=== PATIENT | female | born 1950 | race Caucasian/White ===

== ENCOUNTER 2016-07-31 15:08 | Emergency (ER) | payer MEDICARE, OTHER ==
[~2016-07-31 15:08] MED LIST: ASCO500T2 PO; ASPI81TA2 PO; ATOR10TA PO; METAMUCIL POWD283 GM PO; MULT-658 PO
[2016-07-31 15:35] VITALS: BP 150/87
--- NOTE | 2016-07-31 15:37 | ED.ADGEN ---
Past History Past Medical History: Kidney Stones, Other Past Surgical History: , Hysterectomy Alcohol Use: None Drug Use: None Adult General Chief Complaint Chief Complaint chemical exposure HPI HPI Patient is a 66 year old female who presents for evaluation of her left arm. She was opening a new bottle of Lysol Bleach toilet bowl pillowcase cleaner and it "exploded" and the liquid went on her left hand and forearm. This occurred 2.5 hours prior to arrival. She immediately washed off her arm and then contacted the number on the bottle. They recommended that the pt wash her arm for 15 minutes and then monitor. If redness or itching developed, pt recommended to come to the ED for further evaluation. She thought she could feel some itching and see redness so the patient came on in. About a week ago, pt reports she bumped her left elbow. Since then, she's had intermittent pain in the elbow, improves when holding in completely flexed position. She has not attempted any pain relieving medication and has not noted any weakness. PCP is Dr. Wood Review of Systems Review of Systems Constitutional: Denies fever or chills [] Eyes: Denies change in visual acuity, redness, or eye pain [] HENT: Denies nasal congestion or sore throat [] Respiratory: Denies cough or shortness of breath [] Cardiovascular: Denies chest pain GI: Denies abdominal pain, nausea, vomiting, bloody stools or diarrhea [] : Denies dysuria or hematuria [] Musculoskeletal: Denies back pain Integument: Denies rash or skin lesions [] Neurologic: Denies headache, focal weakness or sensory changes [] Allergies Allergies Allergies Coded Allergies Type Severity Reaction Last Updated Verified influenza virus vaccine, specific Allergy Unknown 04/05/14 Yes Uncoded Allergies Type Severity Reaction Last Updated Verified BETA OLIVIA Allergy Unknown 04/05/14 EGGS Allergy Unknown 04/05/14 Physical Exam Physical Exam Constitutional: Well developed, well nourished, no acute distress, non-toxic appearance. [] HENT: Normocephalic, atraumatic, bilateral external ears normal, oropharynx moist, no oral exudates, nose normal. [] Eyes: PERRLA, EOMI, conjunctiva normal, no discharge. [] Neck: Normal range of motion, no tenderness, supple, no stridor. [] Cardiovascular:Heart rate regular with regular rhythm, no murmur [] Lungs & Thorax: Bilateral breath sounds clear to auscultation, no wheeze or crackles Skin: Warm, dry, no erythema or rash, no lesions, skin intact Back: No tenderness, no CVA tenderness. [] Extremities: No tenderness, no cyanosis, no clubbing, ROM intact, no edema. left elbow FROM, no ttp, no edema, no erythema or increased warmth Neurologic: Alert and oriented X 3, normal motor function, normal sensory function, no focal deficits noted. [] EKG EKG [] Radiology/Procedures Radiology/Procedures [] Course & Med Decision Making Course & Med Decision Making Pertinent Labs and Imaging studies reviewed. (See chart for details) Discussed possibility of contact dermatitis vs chemical burn and treatment/ findings for both. At this time, pt does not have signs of either. I also explained the redness she appreciated could have been from the cleaning itself. Return precautions given and pt dc'd. Final Impression Final Impression household cleaning chemical exposure to left arm left elbow pain[] Problems: Dragon Disclaimer Dragon Disclaimer This electronic medical record was generated, in whole or in part, using a voice recognition dictation system. JOSEF COMER MD Jul 31, 2016 15:37
== END 2016-07-31 15:35 | disposition home or self-care (01) ==
LOC: ER 15:08
DX: Z77.098 Contact with and (suspected) exposure to other hazardous, chiefly nonmedicinal, chemicals (principal); M25.522 Pain in left elbow; Z87.442 Personal history of urinary calculi; Z88.7 Allergy status to serum and vaccine; Z88.8 Allergy status to other drugs, medicaments and biological substances; Z91.012 Allergy to eggs
CPT/HCPCS: 99281

== ENCOUNTER → 2017-01-17 | Outpatient (CLI) | payer MEDICARE, OTHER ==
[~2017-01-17] MED LIST changes: +ASPI-630 PO; -ASPI81TA2 PO
--- NOTE | 2017-01-17 15:24 | RAD ---
Abdominal radiograph 01/17/2017 at 0941 hours Indication: Kidney stone Comparison: Abdominal radiograph 07/01/2016 Technique: Single supine radiograph of the abdomen is provided. Findings: Supine technique limits evaluation for free intraperitoneal air. Rounded calcific density projecting over the right renal shadow measures 11 mm. No calculi are identified along the course of the ureters or urinary bladder. Phleboliths are noted within the pelvis, stable. Similar appearance of a gas-filled bowel loop in the left upper quadrant. Impression: There is a 11 mm calcific density projecting over the right renal shadow which may represent a renal calculus. However, no definite calculi are identified along the course of the ureters or urinary bladder.
== END | disposition home or self-care (01) ==
LOC: DXRAD 09:34
PROVIDERS: ATTEND Urology
DX: N20.0 Calculus of kidney (principal); I87.8 Other specified disorders of veins
CPT/HCPCS: 74000

== ENCOUNTER → 2018-01-23 | Outpatient (CLI) | payer MEDICARE, OTHER ==
--- NOTE | 2018-01-23 13:04 | RAD ---
EXAM: Abdomen, single view. HISTORY: Nephrolithiasis. COMPARISON: 01/17/2017 FINDINGS: A frontal view of the abdomen is obtained. There is a cluster of stones overlying the lower pole the left kidney measuring 9 mm in conglomerate. This appears slightly decreased in size compared to the prior study, allowing for artifact due to overlying bowel on the prior study. No contralateral stone is seen. There are pelvic phleboliths. There is a nonobstructive bowel gas pattern. IMPRESSION: Left nephrolithiasis, slightly decreased compared to the prior study. Electronically signed by: Harmony Brizuela MD (01/23/2018 1:01 PM) [place] [id number]
== END | disposition home or self-care (01) ==
LOC: DXRAD 10:09
PROVIDERS: ATTEND Urology
DX: N20.0 Calculus of kidney (principal); Z91.012 Allergy to eggs; Z88.7 Allergy status to serum and vaccine; Z88.8 Allergy status to other drugs, medicaments and biological substances; Z90.710 Acquired absence of both cervix and uterus
CPT/HCPCS: 74018

== ENCOUNTER 2020-05-27 06:53 | Emergency (ER) | payer MEDICARE, OTHER ==
[~2020-05-27] VITALS: Ht 147.3 cm; Wt 49.5 kg
[~2020-05-27 06:53] MED LIST changes: -ASCO500T2 PO; +ASCO500T4 PO
[2020-05-27] MEDS ORDERED: ONDANSETRON PF 4 MG/2 ML VIAL. IVP ONE (07:45)
[2020-05-27] MEDS ORDERED: IOHEXOL 300 MG/ML 75 ML VIAL. IV ONE (07:45)
[2020-05-27] MEDS ORDERED: IV NORMAL SALINE 500ML 500 ML IV ONE (07:45)
--- NOTE | 2020-05-27 07:53 | PHYS DOC ---
Past History Past Medical History: Glaucoma, High Cholesterol, Kidney Stones Past Surgical History: , Hysterectomy, Other Alcohol Use: None Drug Use: None General Adult EDM: Chief Complaint: ABDOMINAL PAIN HPI: HPI: Patient is a 70-year-old female coming in for low abdominal pain that woke her up around 2 AM. Patient says she takes the Pepto-Bismol and Tums. Says the pain feels like "gas pain". Is not improved with passing gas. Patient states the pain is better with walking around and worse with laying supine or standing upright. Says her last bowel movement was about 1 day ago and has a history of constipation and straining. Denies any bloody or tarry bowel movements. Has had 1 episode of emesis since the pain started, which was clear. Denies any fevers, cough, headache, lightheadedness, changes or pain with urination. Has a history of a hysterectomy and 2 C-sections. States she is lactose intolerant and ate pizza last night but took that she is off. Review of Systems: Review of Systems: All other systems within normal limits except for as noted in the HPI Current Medications: Current Meds: Current Medications Medications (Trade) Dose Ordered Sig/Petty Start Time Stop Time Status Last Admin Dose Admin Fentanyl Citrate (Fentanyl 2ml Vial) 50 mcg 1X ONCE 05/27/20 07:45 05/27/20 07:46 DC Iohexol (Omnipaque 300 Mg/ml) 75 ml 1X ONCE 05/27/20 07:45 05/27/20 07:46 UNV Ondansetron HCl (Zofran) 4 mg 1X ONCE 05/27/20 07:45 05/27/20 07:46 DC Sodium Chloride 500 ml @ 0 mls/hr 1X ONCE 05/27/20 07:45 05/27/20 07:46 DC Allergies: Allergies: Allergies Coded Allergies Type Severity Reaction Last Updated Verified latex Allergy Mild Rash 05/27/20 Yes oseltamivir Allergy Unknown 05/27/20 Yes pregabalin Allergy Unknown 05/27/20 Yes Uncoded Allergies Type Severity Reaction Last Updated Verified BETA OLIVIA Allergy Unknown 04/05/14 EGGS Allergy Unknown 04/05/14 Physical Exam: PE: Constitutional: Well developed, well nourished, no acute distress, non-toxic appearance. [] HENT: Normocephalic, atraumatic, bilateral external ears normal, nose normal. [] Eyes: PERRLA, conjunctiva normal, no discharge. [] Neck: No rigidity, supple, no stridor. [] Cardiovascular: Regular rate and rhythm, brisk cap refill [] Lungs & Thorax: Non labored symmetric respirations, no tachypnea or respiratory distress [] Abdomen: Soft, nondistended generalized tenderness palpation. Skin: Warm, dry, no erythema, no rash. [] Extremities: No deformities, range of motion grossly intact, no lower extremity edema [] Neurologic: Alert and oriented X 3, no focal deficits noted. [] Psychologic: Affect normal, judgement normal, mood normal. [] Current Patient Data: Vital Signs: Vital Signs Date Time Temp Pulse Resp B/P (MAP) Pulse Ox O2 Delivery O2 Flow Rate FiO2 05/27/20 07:03 98.1 65 18 159/85 (109) 98 EKG: EKG: Sinus rhythm, heart rate 61 bpm, no ST elevation depression, normal axis. No ectopy, normal intervals [] Radiology/Procedures: Radiology/Procedures: Study: CT abdomen/pelvis with intravenous contrast Indication: Right lower quadrant abdominal pain. Comparison: 04/05/2014 Technique: Helical CT imaging performed of the abdomen and pelvis after the intravenous administration of 75 cc Omnipaque 300 contrast. Sagittal and coronal reformats were obtained. One or more of the following individualized dose reduction techniques were utilized for this examination: 1. Automated exposure control 2. Adjustment of the mA and/or kV according to patient size 3. Use of iterative reconstruction technique. Findings: Punctate nodularity partially imaged in the right middle lobe not meeting size criteria for dedicated follow-up. Redemonstration of scattered subcentimeter hypoattenuating foci within the liver. No suspicious hepatic abnormality. Within normal limits gallbladder and biliary tree. Unremarkable pancreas, spleen and adrenal glands. Redemonstration of numerous hepatic cystic foci. There is again some calcification along the periphery of the cyst on the right. No newly seen complex cyst or mass. Intrarenal stones on the left the largest measuring 5.5 mm. No hydronephrosis. Unremarkable bladder. No adnexal mass. There is some haziness of the fat along the colon at several locations but no overt colonic wall thickening to suggest an active colitis. The appendix is unremarkable. At the lower abdomen and pelvis, segments of small bowel are mildly thick walled with mucosal hyperenhancement and surrounding mild edema. Small amount of free fluid within the deep pelvis. No pathologic dilatation of small bowel to suggest a high-grade obstruction. No pneumatosis or findings of perforation. Nonaneurysmal aorta. No lymphadenopathy by size criteria. No acute or aggressive osseous process. Scattered degenerative changes. Impression: 1. Segments of small bowel within the lower abdomen and throughout the pelvis extending to the terminal ileum are mildly thick-walled with mucosal hype renhancement. There is also a small amount of free fluid within the deep pelvis and some mild edema along small bowel loops. No pathologic dilatation to suggest a high-grade obstruction at this time. A nonspecific infectious or inflammatory enteritis is the leading consideration. No pneumatosis or perforation. Unremarkable appendix. 2. Nonobstructing intrarenal stones on the left the largest measuring up to 5.5 mm. Redemonstration of numerous renal cysts bilaterally as well as several hepatic cysts. [] Heart Score: Risk Factors: Risk Factors: DM, Current or recent (<one month) smoker, HTN, HLP, family history of CAD, obesity. Risk Scores: Score 0 - 3: 2.5% MACE over next 6 weeks - Discharge Home Score 4 - 6: 20.3% MACE over next 6 weeks - Admit for Clinical Observation Score 7 - 10: 72.7% MACE over next 6 weeks - Early Invasive Strategies Course & Med Decision Making: Course & Med Decision Making Pertinent Labs and Imaging studies reviewed. (See chart for details) Discussed symptomatic treatment and that she can expect to likely have diarrhea coming days. Discussed return precautions for worsening symptoms. [] [place] Disclaimer: [place] Disclaimer: This electronic medical record was generated, in whole or in part, using a voice recognition dictation system. Departure Departure: Impression: Primary Impression: Abdominal pain Additional Impression: Enteritis Disposition: 01 DC HOME SELF CARE/HOMELESS Condition: STABLE Referrals: POOJA HIDALGO (PCP) Patient Instructions: Viral Gastroenteritis Scripts Dicyclomine Hcl (DICYCLOMINE HCL) 10 Mg Capsule 1 CAP PO TID PRN for abdominal pain for 3 Days, #9 CAP 11 Refills Prov: ISHAAN TYLER MD 05/27/20 Ondansetron (ONDANSETRON ODT) 4 Mg Tab.rapdis 1 TAB PO PRN Q6-8HRS PRN for NAUSEA for 3 Days, #8 TAB Prov: ISHAAN TYELR MD 05/27/20 ISHAAN TYLER MD May 27, 2020 07:53
[2020-05-27 07:57] LABS: BASO % 1 % (0-3); EOS % 0 % (0-3); HEMATOCRIT 39.8 % (36.0-47.0); HEMOGLOBIN 13.5 g/dL (12.0-15.5); LYMPH # 0.8 x10^3/uL (1.0-4.8); LYMPH % 10 % (24-48); MEAN CORPUSCULAR HEMOGLOBIN 32 pg (25-35); MEAN CORPUSCULAR HGB CONC 34 g/dL (31-37); MEAN CORPUSCULAR VOLUME 95 fL (79-100); MONO # 0.2 x10^3/uL (0.0-1.1); MONO % 3 % (0-9); NEUT % 86 % (31-73); PLATELET COUNT 221 x10^3/uL (140-400); RED BLOOD COUNT 4.16 x10^6/uL (3.50-5.40); RED CELL DISTRIBUTION WIDTH 12.6 % (11.5-14.5); WHITE BLOOD COUNT 8.1 x10^3/uL (4.0-11.0)
[2020-05-27 07:58] LABS: CALCIUM 9.3 mg/dL (8.5-10.1); CREATININE 0.7 mg/dL (0.6-1.0); GFR 82.3
[2020-05-27 08:04] LABS: ALBUMIN 3.7 g/dL (3.4-5.0); ALBUMIN/GLOBULIN RATIO 1.2 (1.0-1.7); TOTAL BILIRUBIN 0.4 mg/dL (0.2-1.0); TOTAL PROTEIN 6.7 g/dL (6.4-8.2)
[2020-05-27 08:20] LABS: BILIRUBIN,URINE NEG (NEG); CLARITY,URINE CLEAR; COLOR,URINE YELLOW; GLUCOSE,URINE NEG (NEG); NITRITE,URINE NEG (NEG); UROBILINOGEN,URINE 0.2 mg/dL (0.2 mg/dL)
[2020-05-27 08:21] LABS: AMORPHOUS SEDIMENT,UR PRESENT /HPF; BACTERIA,URINE 0 /HPF (0-FEW); WBC,URINE OCC /HPF (0-4)
[2020-05-27 08:27] LABS: % LYMPHS 7 % (24-48); % MONOS 5 % (0-10); % SEGS 88 % (35-66)
[2020-05-27 08:28] LABS: PLT ESTIMATE ADEQUATE (ADEQUATE)
--- NOTE | 2020-05-27 08:53 | RAD ---
Study: CT abdomen/pelvis with intravenous contrast Indication: Right lower quadrant abdominal pain. Comparison: 04/05/2014 Technique: Helical CT imaging performed of the abdomen and pelvis after the intravenous administratio n of 75 cc Omnipaque 300 contrast. Sagittal and coronal reformats were obtained. One or more of the following individualized dose reduction techniques were utilized for this examinat ion: 1. Automated exposure control 2. Adjustment of the mA and/or kV according to patient size 3. Use of iterative reconstruction technique. Findings: Punctate nodularity partially imaged in the right middle lobe not meeting size criteria for dedicated follow-up. Redemonstration of scattered subcentimeter hypoattenuating foci within the liver. No suspicious hepat ic abnormality. Within normal limits gallbladder and biliary tree. Unremarkable pancreas, spleen and adrenal glands. Redemonstration of numerous hepatic cystic foci. There is again some calcification along the peripher y of the cyst on the right. No newly seen complex cyst or mass. Intrarenal stones on the left the lar gest measuring 5.5 mm. No hydronephrosis. Unremarkable bladder. No adnexal mass. There is some haziness of the fat along the colon at several locations but no overt colonic wall thic kening to suggest an active colitis. The appendix is unremarkable. At the lower abdomen and pelvis, s egments of small bowel are mildly thick walled with mucosal hyperenhancement and surrounding mild [place] ma. Small amount of free fluid within the deep pelvis. No pathologic dilatation of small bowel to sug gest a high-grade obstruction. No pneumatosis or findings of perforation. Nonaneurysmal aorta. No lymphadenopathy by size criteria. No acute or aggressive osseous process. Sca ttered degenerative changes. Impression: 1. Segments of small bowel within the lower abdomen and throughout the pelvis extending to the termi nal ileum are mildly thick-walled with mucosal hyperenhancement. There is also a small amount of free fluid within the deep pelvis and some mild edema along small bowel loops. No pathologic dilatation t o suggest a high-grade obstruction at this time. A nonspecific infectious or inflammatory enteritis i s the leading consideration. No pneumatosis or perforation. Unremarkable appendix. 2. Nonobstructing intrarenal stones on the left the largest measuring up to 5.5 mm. Redemonstration of numerous renal cysts bilaterally as well as several hepatic cysts. Electronically signed by: MAISHA ESCOBAR MD (05/27/2020 8:51 AM) [id number]
[2020-05-27] MEDS ORDERED: DICYCLOMINE 20 MG/2 ML VIAL. IM ONE (09:15)
[2020-05-27] MEDS ORDERED: DICY10CA3 PO (09:15)
[2020-05-27] MEDS ORDERED: ONDA4TAB12 PO (09:15)
--- NOTE | 2020-05-27 09:39 | EKG ---
[facility] ED [facility] [address] [place] [id number] Test Date: 2020-05-27 Test Time: 07:46:20 Pat Name: GERRY BARRAGAN Department: Room: Gender: F Director [employer]: SALLY : 1950 Requested By: ISHAAN TYLER Order Number: [id number] Reading MD: Measurements Intervals [place] Rate: 61 P: 54 IN: 160 QRS: 5 QRSD: 86 T: 18 QT: 414 QTc: 418 Interpretive Statements SINUS RHYTHM NORMAL ECG RI6.02 No previous ECG available for comparison
[2020-05-27 10:00] VITALS: BP 149/77
== END 2020-05-27 10:15 | disposition home or self-care (01) ==
LOC: ER 06:53
DX: K52.9 Noninfective gastroenteritis and colitis, unspecified (principal); E78.00 Pure hypercholesterolemia, unspecified; Z87.442 Personal history of urinary calculi; Z98.890 Other specified postprocedural states; Z90.710 Acquired absence of both cervix and uterus; Z91.040 Latex allergy status; Z88.8 Allergy status to other drugs, medicaments and biological substances
CPT/HCPCS: 36415; 74177; 80053; 81001; 83605; 83690; 84484; 85007; 85025; 93005; 96372; 96374; 96375; 99285; J0500; J2405; J3010; J7040; Q9967

== ENCOUNTER → 2021-01-30 | Outpatient (CLI) | payer MEDICARE, OTHER ==
[~2021-01-30] MED LIST changes: +DICY10CA3 PO; +ONDA4TAB12 PO
--- NOTE | 2021-01-30 14:02 | RAD ---
MG BILAT SCREEN+DONTRELL 01/30/2021 7:58 AM INDICATION: Asymptomatic screening mammogram. COMPARISON: None available TECHNIQUE: 3D tomosynthesis was performed in CC and MLO projections. 2D views were obtained from the 3D data. CAD was utilized as needed. FINDINGS: Breast density: Category C: The breats are heterogeneously dense, which may obscure small masses. Right breast: In the upper outer right breast at middle to posterior depth, approximately 6 cm from t he nipple there is a focal asymmetry. Recommend further evaluation with spot compression CC and ML vi ews as well as possible ultrasound. Additionally, there is focal asymmetry in the slightly upper slig htly outer right breast within the retroareolar region. Spot compression CC and MLO views are recomme nded as well as possible ultrasound. Left breast: There are no suspicious microcalcifications, masses or areas of architectural distortion . IMPRESSION: 1. Incomplete right mammogram. Additional imaging is recommended as detailed above. 2. Negative left mammogram. BI-RADS category: 0; Incomplete Recommendations: Recommend additional imaging for which the patient will need to be called back. Electronically signed by: Jackie Bailey MD (01/30/2021 1:55 PM) [id number]
== END ==
LOC: MAMMO 07:43
PROVIDERS: ATTEND Physician Assistant Medical
DX: Z12.31 Encounter for screening mammogram for malignant neoplasm of breast (principal)
CPT/HCPCS: 77063; 77067

== ENCOUNTER → 2021-02-16 | Outpatient (CLI) | payer MEDICARE, OTHER ==
--- NOTE | 2021-02-16 15:34 | RAD ---
EXAM: Right breast diagnostic mammogram; right breast sonogram. HISTORY: 70-year-old female presents for evaluation of asymmetry within the right breast demonstrated on a mammogram dated 01/30/2021. TECHNIQUE: Spot compression an full-field true lateral views of the right breast are obtained. Sonogr aphic imaging of the right breast targeted to the site of mammographic asymmetry was also performed. COMPARISON: 01/30/2021, 03/16/2019, 02/10/2018 BREAST PARENCHYMAL DENSITY: Level C - Heterogeneously dense FINDINGS: There is persistent asymmetry within the 9:00 position of the right breast with spot compre ssion views. This appears to change configuration with compression, favoring an island of dense fibro glandular tissue. No suspicious calcification or architectural distortion is seen in this location. T here is no persistent finding of concern within the subareolar aspect of the right breast. Sonographic imaging of the right breast demonstrates out of dense breast parenchyma at the 9:00 to 10 :00 position. No mass is seen. There is no suspicious posterior shadowing or architectural distortion . There is scarring within the superficial soft tissues of the periareolar right breast due to prior reported excisional biopsy. IMPRESSION: 1. No convincing suspicious mammographic or sonographic finding. There is an island of dense benign f ibers glandular tissue within the 9:00 to 10:00 position an there is scarring related to prior excisi onal biopsy within the subareolar aspect of the right breast. 2. BI-RADS Category 2: Benign finding(s). RECOMMENDATION: Annual mammography is recommended. If your mammogram demonstrates that you have dense breast tissue, which could hide abnormalities, and if you have other risk factors for breast cancer that have been identified, you might benefit from s upplemental screening tests that may be suggested by your ordering physician. Dense breast tissue, i n and of itself, is a relatively common condition. This information is not provided to cause undue c oncern, but rather to raise your awareness and to promote discussion with your physician regarding th e presence of other risk factors, in addition to dense breast tissue. A report of your mammography re sults will be sent to you and your physician. You should contact your physician if you have any ques tions or concerns regarding this report. Mammography is a sensitive method for finding small breast cancers, but it does not detect them all a nd is not a substitute for careful clinical examination. A negative mammogram does not negate a clin ically suspicious finding and should not result in delay in biopsying a clinically suspicious abnorma lity. PQRS compliance statement - Patient information was entered into a reminder system with a target due date for the next mammogram. "Our facility is accredited by the [employer] Mammography Program." Electronically signed by: Harmony Brizuela MD (02/16/2021 3:32 PM) [id number]
== END ==
LOC: MAMMO 14:28
PROVIDERS: ATTEND Physician Assistant Medical
DX: R92.2 Inconclusive mammogram (principal)
CPT/HCPCS: 76641; 77065